=== PATIENT | female | born 1985 | race Caucasian/White ===

== ENCOUNTER 2017-09-08 00:49 | Observation (INO) | payer BC ==
[~2017-09-08] VITALS: Ht 157.5 cm; Wt 47.6 kg
[2017-09-08] VITALS (11 sets, daily range): BP systolic 105–125; BP diastolic 69–90
[~2017-09-08 00:49] MED LIST: ALPR-429 PO; ALPR-434; ALPR-451 PO; ALPR-461 PO; AZIT-17 PO; BENZ100C4 PO; CLON-303 PO; CODE118S5; CODE118S5 PO; GABA-490 PO; HALO5AMP5 PO; HYDR2TAB74 PO; HYDR50CA48 PO; MIRT-1 PO; NAPR500T75; NICO1PAT45 TD; OXYC-823 PO; OXYC5TAB38; PROM-110 PO; ROBC PO; TRAM-420 PO; TRAM-627 PO; ZOLP-350 PO; ZOLP12.548 PO
[2017-09-08 10:38] LABS: PLATELET COUNT, AUTOMATED 496 K/uL (150-450)
--- NOTE | 2017-09-08 11:22 | RADIOLOGY IMAGING REPORT ---
FACILITY: [facility] [place] PATIENT NAME: Kinga Palacios : 1985 MR: [id number] V: [id number] EXAM DATE: ORDERING PHYSICIAN: MARIA ALEJANDRA JARRETT TECHNOLOGIST: Location: [facility] [place] Patient: Kinga Palacios : 1985 Visit/Account:[id number] Date of Sevice: 09/08/2017 Exam type: CHEST PA AND LAT History: COUGH, PRIOR TO ANESTHESIA Comparison: May 13, 2016. Findings: Lungs are free of acute effusions of the tracer edema. There is no evidence of a pneumothorax or pne umomediastinum. The cardiac silhouette is normal in size. The trachea is in midline. IMPRESSION: 1. No acute cardiopulmonary process is seen Report Dictated By: Sloane Ac MD at 09/08/2017 11:16 AM Report E-Signed By: Sloane Ac MD at 09/08/2017 11:18 AM WSN:[email or web address]
[2017-09-08] MEDS: NORMOSOL R SOLN(*) 1000 ML BAG 1,000 ML IV PRN ×2 (11:37→14:51)
[2017-09-08] MEDS ORDERED: FAMOTIDINE 20 MG TAB PO ONE (12:15)
[2017-09-08] MEDS ORDERED: AMPICILLIN/SULBACT (*) 3 GM VL 3 GM in NS(*) 0.9% 100 ML BAG 100 ML IVPB ONE (12:15)
[2017-09-08] MEDS ORDERED: LIDOCAINE/SOD BICARB 8.4% SYR ID ONE (12:15)
[2017-09-08] MEDS ORDERED: INDOCYANINE GREEN 25 MG VIAL IVP ONE (12:15)
[2017-09-08] MEDS: fentaNYL CITR 100 MCG/2 ML AMP IVP PRN ×2 (12:26→13:10)
[2017-09-08] MEDS ORDERED: fentaNYL CITR 250 MCG/5 ML AMP ONE ×2 (13:41→13:42)
[2017-09-08] MEDS ORDERED: PROPOFOL EMUL(*) 10MG/ML 20 ML 20 ML ONE (13:46)
[2017-09-08] MEDS ORDERED: LIDOCAINE MPF 1% 5 ML VIAL ONE (13:47)
[2017-09-08] MEDS ORDERED: SUGAMMADEX SOD 200 MG/2 ML SDV ONE ×2 (13:50→15:51)
[2017-09-08] MEDS ORDERED: ROPIVACAINE 0.5% 20 ML VIAL ONE (14:55)
[2017-09-08] MEDS: MIDAZOLAM 2 MG/2 ML VIAL IVP PRN ×4 (15:11→17:40)
[2017-09-08] MEDS ORDERED: DEXAMETHASONE SOD 4 MG/ML VIAL ONE (15:22)
[2017-09-08] MEDS ORDERED: ONDANSETRON 4 MG/2 ML VIAL ONE (15:23)
[2017-09-08] MEDS ORDERED: fentaNYL CITR 100 MCG/2 ML AMP ONE ×3 (16:00→16:50)
[2017-09-08] MEDS ORDERED: KETOROLAC 30 MG/ML VIAL ONE (16:17)
[2017-09-08] MEDS: MEPERIDINE 50 MG/ML SYR ONE (16:54)
[2017-09-08] MEDS ORDERED: NS(*) 0.9% 1000 ML BAG 1,000 ML IV PRN (16:59)
[2017-09-08] MEDS ORDERED: ACETAMINOPHEN 325 MG TAB PO PRN (17:00)
[2017-09-08] MEDS ORDERED: FLUSH 10 ML SYR IVP PRN (17:00)
[2017-09-08] MEDS ORDERED: PROMETHAZINE HCL 25 MG TAB PO PRN (17:00)
[2017-09-08] MEDS ORDERED: ONDANSETRON 4 MG/2 ML VIAL IVP PRN (17:00)
[2017-09-08] MEDS ORDERED: NALOXONE HCL 0.4 MG/ML VIAL IVP PRN (17:00)
[2017-09-08] MEDS ORDERED: HYDROmorphone HCL 2 MG/ML SDV ONE (17:04)
--- NOTE | 2017-09-08 17:57 | Post Operative Progress Note ---
Post Operative Progress Note Date: Sep 08, 2017 Time: 17:44 Surgeon: Zuhair Dictation number: [id number] Anesthesia: GETA by Dr. Lwason Pre-Op Diagnosis: Symptomatic Gallstones Post-Op Diagnosis: MARISA Findings: None Procedure(s): Robotic morales Specimen Removed:(May be N/A): GB and contents Complications: None Fluids: See anesthesia record Estimated Blood Loss: Minimal Date OP Note Dictated: Sep 08, 2017 Time OP Note Dictated: 17:45 GAUTAM GRAY MD Sep 08, 2017 17:57
[2017-09-08] MEDS: oxyCODONE HCL 5 MG CAP PO PRN (18:50)
--- NOTE | 2017-09-08 19:25 | OPERATIVE REPORT 1 ---
EVENT DATE: September 08, 2017 SURGEON: Bernard Moffett MD ANESTHESIOLOGIST: Thierry Lawson MD ANESTHESIA: General endotracheal anesthesia. PREOPERATIVE DIAGNOSIS Symptomatic gallstones. POSTOPERATIVE DIAGNOSIS Symptomatic gallstones. PROCEDURE PERFORMED Robotic cholecystectomy. COMPLICATIONS None. CONDITION Stable. BLOOD LOSS Minimal. INDICATIONS This is a 32-year-old female with chronic pain who has a chronic history of diffuse abdominal pain, nausea, vomiting, as well as constipation, and who is on chronic pain meds, but who was recently seen in the [facility] where a right upper quadrant ultrasound revealed gallstones, and apparently she had right upper quadrant abdominal tenderness with the ultrasound. She was referred to me for cholecystectomy. DESCRIPTION OF PROCEDURE The patient was brought to the operating room and placed supine on the operating table. General endotracheal anesthesia was administered, and her abdomen was prepped and draped in a sterile fashion. Timeout was completed. I injected the infraumbilical skin with 0.5% ropivacaine plain. I made a curvilinear smiley face type incision in the infraumbilical rim, dissected down through the dermis and subcutaneous fat, and identified the midline fascia. I made a vertical incision in the midline fascia and bluntly entered the peritoneal cavity with my finger. I placed two interrupted 0 Vicryl sutures transversely through the vertical fascia defect and inserted a 12 mm robotic Grady-type port through this wound. It was secured in place with sutures. I insufflated the abdomen to a pressure of 15 mmHg and then inserted the robotic camera into the abdomen. Gross inspection of the abdominal cavity did not reveal any obvious evidence of any intra-abdominal pathology or entry-related injuries. Specifically, I did not see any evidence of endometriosis which the patient was concerned about. Next, under direct visualization, I placed two 8 mm ports in the left side of the abdomen, one in the anterior axillary line below the left costal margin and then one about half way between the umbilical and left upper quadrant ports. I then placed a third 8 mm port in the left mid abdomen about the level of the umbilicus in the mid clavicular line. The patient was placed in reverse Trendelenburg and planed towards her left to remove the viscera from the right upper quadrant, and the robot was docked. I scrubbed out and went to the console. I then grasped the fundus of the gallbladder and retracted it towards the patient's right shoulder. The infundibulum was retracted towards the patient's right hip. I used the hook electrocautery and divided the peritoneum overlying the infundibulum and up both the medial and lateral aspects of the gallbladder. I stripped the peritoneum down off the infundibulum, and I immediately identified cystic duct and artery. I used the Firefly to light up the cystic duct and common bile duct. Once these were clearly identified, I cleaned off the cystic duct and cystic artery circumferentially. I then clipped the cystic duct distally with two clips and then up by the infundibulum with one clip and divided it between clips. I then clipped the artery proximally and distally and divided it between clips. I then divided the gallbladder's posterior attachments to separate it from the gallbladder fossa and then placed the gallbladder in a surgical specimen retrieval bag and removed it from the abdomen through the umbilical port site. I inspected the right upper quadrant, and there was no bleeding or bile leak from the gallbladder fossa or the cystic duct or artery stumps. I then removed the robotic instruments and undocked the robot. I then removed all the ports and desufflated the abdomen. I then closed the midline fascia at the umbilicus with a [id number] 0 Vicryl suture and tied all three of these down with good reapproximation of the fascial edges. I then closed the skin at each port site with 4-0 Monocryl running subcuticular suture. The skin was cleaned and dried, and Steri-Strips were applied, followed by sterile surgical dressings. The patient was awakened and extubated in the operating room and transferred to the recovery room in stable condition having tolerated the procedure without any apparent problems. GUIDO
[2017-09-08] MEDS: MORPHINE 2 MG/ML SYR IVP PRN ×3 (20:29→23:35)
[2017-09-08] MEDS ORDERED: ZOLPIDEM TARTRATE 10 MG TAB PO SCH (21:00)
[2017-09-08] MEDS ORDERED: NICOTINE 14 MG/24 HR PATCH TD SCH (21:00)
[2017-09-08] MEDS: DOCUSATE SODIUM 100 MG CAP PO SCH (21:05)
[2017-09-08] MEDS: FAMOTIDINE 20 MG TAB PO SCH (21:05)
[2017-09-08] MEDS: ALPRAZolam 1 MG TAB PO SCH (21:05)
[2017-09-09] VITALS (7 sets, daily range): BP systolic 103–119; BP diastolic 79–89
[2017-09-09] MEDS: oxyCODONE HCL 5 MG CAP PO PRN ×3 (01:20→14:41)
[2017-09-09] MEDS: MORPHINE 2 MG/ML SYR IVP PRN ×7 (01:43→19:09)
[2017-09-09] MEDS: ALPRAZolam 1 MG TAB PO SCH ×2 (08:24→13:09)
[2017-09-09] MEDS: FAMOTIDINE 20 MG TAB PO SCH (08:25)
[2017-09-09] MEDS: DOCUSATE SODIUM 100 MG CAP PO SCH (08:25)
[2017-09-09] MEDS ORDERED: NICOTINE 14 MG/24 HR PATCH TD SCH (09:00)
--- NOTE | 2017-09-09 09:07 | General Surgery Progress Note ---
Subjective Progress Notes Subjective Feeling reasonably well. Had to place a urinary catheter last night as she was unable to void. Removed this morning. She hasn't been able to urinate yet. Physical Exam Vital Signs Date Time Temp Pulse Resp B/P (MAP) Pulse Ox O2 Delivery O2 Flow Rate FiO2 09/09/17 07:18 98.7 89 16 103/81 (88) 97 Room Air 09/09/17 03:00 0.5 General Appearance: Alert, Awake, No Acute Distress, Afebrile GI: Other (Soft, appropriate postop TTP, dressings C/D/I.) Extremities: Warm, Perfused Result Diagram: 09/08/17 1002 09/08/17 1002 Assessment and Plan Problems: (1) Cholelithiasis Status: Chronic Assessment & Plan: 09/09/17: POD#1 s/p robotic cholecystectomy. Doing well. Will ensure she can urinate then will d/c to home later today. Condition Stable. Time Spent: < 30 min Exam Sepsis Risk: No Definite Risk Problem Qualifiers (1) Cholelithiasis: Cholelithiasis location: gallbladder Cholecystitis presence: with cholecystitis Cholecystitis acuity: chronic Biliary obstruction: without biliary obstruction Qualified Codes: K80.10 - Calculus of gallbladder with chronic cholecystitis without obstruction GAUTAM GRAY MD Sep 09, 2017 09:07
[2017-09-09] MEDS ORDERED: OXYC5TAB38 PO (13:41)
[2017-09-09] MEDS ORDERED: DOCU-416 PO (13:41)
--- NOTE | 2017-09-09 13:44 | Short(Outpt) Discharge Summary ---
Discharge Summary Reason for Hosp/Final Diag: (1) Cholelithiasis Status: Chronic Hospital Course & Plan: 09/09/17: POD#1 s/p robotic cholecystectomy. Doing well. Will ensure she can urinate then will d/c to home later today. 09/09/17: Doing well. Urinating without problems. D/C to home. Departure Discharge to: Home, Self Care Discharge Instructions Home Meds Active Scripts Docusate Sodium (COLACE) 100 Mg Capsule, 1 CAP PO BID, #30 CAP 0 Refills TAKE WITH A FULL GLASS OF WATER Prov:BERNARD GRAY MD 09/09/17 Oxycodone Hcl (OXYCODONE HCL) 5 Mg Tablet, 1-3 TAB PO Q4H Y for PAIN, #45 TAB 0 Refills Prov:BERNARD GRAY MD 09/09/17 Reported Medications Nicotine (NICOTINE PATCH) 1 Each Patch.dysq, 1 EACH TD 09/07/17 Azithromycin (Z-PACK) 250 Mg Tablet, 1 TAB PO DIRECTED, #6 DOSE-PACK 09/07/17 Oxycodone Hcl (OXYCONTIN) 10 Mg Tab.er.12h, 5 MG PO Q6H, TAB 09/06/17 Alprazolam (ALPRAZOLAM) 1 Mg Tablet, 1 TAB PO TID, #3 TAB 09/06/17 Zolpidem Tartrate (ZOLPIDEM TARTRATE ER) 12.5 Mg Tab.mphase, 1 TAB PO QHS, TAB 09/06/17 Promethazine Hcl (PROMETHAZINE HCL) 25 Mg Tablet, 25 MG PO Q8H, TAB 05/13/16 Discontinued Reported Medications Tramadol Hcl (TRAMADOL HCL) 50 Mg Tablet, 50 MG PO Q6H, TAB 05/13/16 Alprazolam (XANAX) 0.5 Mg Tablet, 1 TAB PO TID, TAB 05/13/16 Zolpidem Tartrate (AMBIEN) 10 Mg Tablet, 1.5 TAB PO QHS, TAB 05/13/16 Discontinued Scripts Benzonatate 100 Mg Cap (TESSALON PERLE 100 MG CAP) 100 Mg Capsule, 100 MG PO TID Y for COUGH, #15 CAP 0 Refills Prov:MELISSA AVILA MD 05/13/16 Guaifenesin/Codeine (GUAIFENESIN-CODEINE SYRUP) 5 Ml Syrp, 5 ML PO Q4H Y for COUGH, #120 ML 0 Refills Prov:MELISSA AVILA MD 05/13/16 Follow up Referrals: General Surgery - 09/26/17 @ Surgery, General with Bernard Gray Md You have a follow up appointment scheduled with Dr. Gray on 09/26/17, at 11:15am. Diet: Regular Activity: As Tolerated Special Instructions: You may remove the white surgical dressings on 09/10/17, then you can shower. After showering, leave the incisions open to air but leave the steristrips in place until they fall off on their own. Do not immerse the incisions for 2 weeks. Problem Qualifiers (1) Cholelithiasis: Cholelithiasis location: gallbladder Cholecystitis presence: with cholecystitis Cholecystitis acuity: chronic Biliary obstruction: without biliary obstruction Qualified Codes: K80.10 - Calculus of gallbladder with chronic cholecystitis without obstruction BERNARD GRAY MD Sep 09, 2017 13:44
[2017-09-09] MEDS ORDERED: PATCH REMOVAL 1 EA TP SCH (21:00)
== END 2017-09-09 13:38 | disposition home or self-care (01) ==
LOC: OR 00:49 → MED 18:20
PROVIDERS: ADMIT Surgery; ATTEND Surgery
DX: K80.80 Other cholelithiasis without obstruction (principal); R05 Cough
CPT/HCPCS: 36415; 47562; 71046; 82248; 83516; 83690; 85025; 85651; 86140; 88304; G0378; J0295; J1100; J1170; J1885; J2001; J2175; J2250; J2270; J2405; J2704; J2795; J3010; J3490; J7030; J7050; S2900; 82040; 82247; 82310; 82374; 82435; 82565; 82947; 84075; 84132; 84155; 84295; 84450; 84460; 84520

== ENCOUNTER 2017-10-09 14:17 | Emergency (ER) | payer BC ==
[~2017-10-09 14:17] MED LIST changes: +DOCU-416 PO; +GOLYTE PO; +OXYC5TAB38 PO
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
[2017-10-09] MEDS ORDERED: NS(*) 0.9% 1000 ML BAG 1,000 ML IV ONE (14:43)
[2017-10-09 14:53] LABS: PLATELET COUNT, AUTOMATED 468 K/uL (150-450)
[2017-10-09] MEDS ORDERED: IOPAMIDOL 76% 75 ML INFUS BTL 75 ML ONE (14:59)
--- NOTE | 2017-10-09 15:32 | RADIOLOGY IMAGING REPORT ---
FACILITY: [facility] PATIENT NAME: Kinga Palacios : 1985 MR: [id number] V: [id number] EXAM DATE: [id number] ORDERING PHYSICIAN: DANIAL YOUNG TECHNOLOGIST: Location[place] [facility] [place] Patient: Kinga Palacios : 1985 Visit/Account:[id number] Date of Sevice: 10/09/2017 CT abdomen and pelvis with IV contrast Indication: Postop abdominal pain. Comparison: None available. . Technique: Axial CT images were obtained through the abdomen and pelvis during injection of nonioni c iodinated intravenous contrast. Reformatted coronal and sagittal images were also obtained. One of the following dose optimization techniques was utilized in the performance of this exam: Autom ated exposure control; adjustment of the mA and/or kV according to the patient's size; or use of an i terative reconstruction technique. Specific details can be referenced in the facility's radiology C T exam operational policy. Contrast: 75 ml of Isovue-370 IV contrast. Findings: Lower lung nelson: Limited views lower lung field are unremarkable. Liver: There are 3 hypodense lesions seen liver, right lobe measuring 1 cm, left lateral lobe measuri ng 1.2 cm and 6 mm. No other focal normality. Biliary: Gallbladder fossa appears unremarkable as well as the intra and extra hepatic biliary system . Pancreas: Normal appearance. Spleen: Normal appearance. Adrenal glands: Unremarkable. Kidneys / retroperitoneum: No evidence of nephrolithiasis or hydronephrosis. Subcentimeter hypodensit y in left kidney is too small characterize and statistically tiny cyst. Bowel / peritoneum / mesenteries: Colon shows no focal normality. Status post appendectomy. Small bow el shows no focal normality or obstruction. Stomach is unremarkable. No free air, free fluid, fluid collections or areas of inflammation. Lymph node assessment: No pathologic adenopathy identified. Pelvic structures: Uterus is not visualized may been surgically removed. The remaining pelvic stru ctures visualized within normal limits. Vessels: No significant atherosclerotic calcifications seen throughout a nonaneurysmal abdominal aort a and branches. Musculoskeletal / Body wall: No acute or aggressive osseous abnormality. IMPRESSION: 1. No acute intra-abdominal abnormality. No fluid collections. 2. 3 hypodense liver lesions which are not simple cyst. These may represent hemangiomas. Consideratio n to follow-up nonemergent MRI of the liver to assess for hemangioma versus other lesions. Report Dictated By: Federico Arenas at 10/09/2017 3:18 PM Report E-Signed By: Federico Arenas at 10/09/2017 3:28 PM WSN:[id number]
[2017-10-09] MEDS ORDERED: ACETAMINOPHEN(*)1000 MG/100 ML 100 ML IVPB ONE (16:25)
[2017-10-09] MEDS ORDERED: PROMETHAZINE 25 MG/ML 1 ML AMP IVP ONE (17:00)
[2017-10-09] MEDS ORDERED: ORPHENADRINE 60MG/2ML INJ IVP ONE (18:10)
[2017-10-09 18:18] VITALS: BP 129/97
[2017-10-09] MEDS ORDERED: TRAM-420 PO (18:44)
[2017-10-09] MEDS ORDERED: traMADol 50 MG TAB TH 2 TAB/BOTTLE PO ONE (18:45)
== END 2017-10-09 18:52 | disposition home or self-care (01) ==
LOC: ER 14:26
DX: R10.84 Generalized abdominal pain (principal)
CPT/HCPCS: 74177; 81001; 82150; 83690; 85025; 96361; 96365; 96375; 99284; C9399; J0131; J2360; J2550; J7030; Q9967; 82040; 82247; 82310; 82374; 82435; 82565; 82947; 84075; 84132; 84155; 84295; 84450; 84460; 84520

== ENCOUNTER → 2018-01-11 | Outpatient (CLI) | payer BC ==
[~2018-01-11] MED LIST changes: -CLON-303 PO; +CLON-304 PO; +CLON0.5T66 PO; +GABA-549 PO; +LIDOCAINE/SOD BICARB 8.4% SYR ID ONE; +LIT150 PO; +NORMOSOL R SOLN(*) 1000 ML BAG 1,000 ML IV PRN; +PROG100C PO; +PROPOFOL EMUL(*) 10MG/ML 20 ML 40 ML ONE; +TIZA4CAP3 PO
== END ==
LOC: OR 00:10 → EDSTATUS 09:45
PROVIDERS: ATTEND Surgery
DX: Z02.9 Encounter for administrative examinations, unspecified (principal)
CPT/HCPCS: J2704